=== PATIENT | female | born 1975 | race Hispanic/Latino ===

== ENCOUNTER 2016-09-02 13:51 | Emergency (ER) | payer MEDICAID ==
[2016-09-02] MEDS ORDERED: OPTIRAY 350 100 ML VIAL HMH IV ONE (13:52)
[2016-09-02] MEDS ORDERED: ONDANSETRON 4 MG VIAL ONE (15:28)
[2016-09-02] MEDS ORDERED: FAMOTIDINE 20 MG INJ ONE (15:28)
[2016-09-02] MEDS ORDERED: MORPHINE 4 MG/ML SYR ONE (15:28)
== END 2016-09-02 16:58 | disposition home or self-care (01) ==
LOC: ER 13:51
DX: A08.4 Viral intestinal infection, unspecified (principal); K25.3 Acute gastric ulcer without hemorrhage or perforation; B96.81 Helicobacter pylori [H. pylori] as the cause of diseases classified elsewhere; R10.13 Epigastric pain; R11.10 Vomiting, unspecified; I10 Essential (primary) hypertension; E11.9 Type 2 diabetes mellitus without complications
CPT/HCPCS: 36415; 74177; 80053; 83690; 84703; 85025; 86677; 96374; 96375

== ENCOUNTER 2016-09-04 17:40 | Emergency (ER) | payer MEDICAID ==
[2016-09-04] MEDS ORDERED: PANTOPRAZOLE 40 MG VIAL IV ONE (23:11)
[2016-09-04] MEDS ORDERED: SODIUM CHLORIDE 0.9% 1,000 ML ONE (23:11)
[2016-09-04] MEDS ORDERED: ALU/MAG/SIM 30 ML UDC ONE (23:11)
[2016-09-04] MEDS ORDERED: LIDOCAINE 2% VISC 15 ML UDC ONE (23:11)
[2016-09-04] MEDS ORDERED: ONDANSETRON 4 MG VIAL ONE (23:11)
== END 2016-09-05 00:59 | disposition home or self-care (01) ==
LOC: ER 17:40
DX: K25.3 Acute gastric ulcer without hemorrhage or perforation (principal); B96.81 Helicobacter pylori [H. pylori] as the cause of diseases classified elsewhere
CPT/HCPCS: 36415; 80053; 81001; 83690; 84703; 85025; 86677; 96361; 96374; 96375

== ENCOUNTER 2016-09-05 06:44 | Emergency (ER) | payer MEDICAID ==
[2016-09-05] MEDS ORDERED: DICYCLOMINE 20MG/2ML VIAL IM ONE (09:12)
[2016-09-05] MEDS ORDERED: ONDANSETRON ODT 4 MG TAB ONE (09:12)
[2016-09-05] MEDS ORDERED: ALU/MAG/SIM 30 ML UDC ONE (09:12)
[2016-09-05] MEDS ORDERED: LIDOCAINE 2% VISC 15 ML UDC ONE (09:12)
== END 2016-09-05 11:31 | disposition home or self-care (01) ==
LOC: ER 06:44
DX: R10.9 Unspecified abdominal pain (principal)
CPT/HCPCS: 96372

== ENCOUNTER 2016-09-06 16:37 | Emergency (ER) | payer MEDICAID ==
[2016-09-06] MEDS ORDERED: SODIUM CHLORIDE 0.9% 1,000 ML ONE (20:27)
[2016-09-06] MEDS ORDERED: PROMETHAZINE 25 MG/ML VIAL ONE (20:27)
[2016-09-06] MEDS ORDERED: SODIUM CHLORIDE 0.9% 50 ML IV ONE (20:28)
== END 2016-09-06 21:47 | disposition home or self-care (01) ==
LOC: ER 16:37
DX: K52.9 Noninfective gastroenteritis and colitis, unspecified (principal); K25.3 Acute gastric ulcer without hemorrhage or perforation; B96.81 Helicobacter pylori [H. pylori] as the cause of diseases classified elsewhere; R11.10 Vomiting, unspecified
CPT/HCPCS: 36415; 80053; 81003; 83690; 84703; 85025; 96361; 96365